=== PATIENT | female | born 1940 | race Caucasian/White ===

== ENCOUNTER 2024-01-02 15:52 | Outpatient (CLI) | payer MEDICARE, SELFPAY | END 2024-01-02 15:53 | disposition home or self-care (01) | PROVIDERS: PCP Family Medicine; Visit Provider Family Medicine | DX: Z00.00 Encounter for general adult medical examination without abnormal findings (principal); D64.9 Anemia, unspecified; E03.9 Hypothyroidism, unspecified; I10 Essential (primary) hypertension; E78.00 Pure hypercholesterolemia, unspecified; E11.9 Type 2 diabetes mellitus without complications | CPT/HCPCS: 80053; 80061; 82043; 82570; 82607; 82728; 83540; 83550; 84443 ==

== ENCOUNTER 2024-02-18 11:31 | Outpatient (CLI) | payer MEDICARE, SELFPAY ==
--- NOTE | 2024-02-18 12:53 | W.ANESCHARGE ---
Anesthesia Charges Start Date/Time Anesthesia Start Date: 02/18/24 Anesthesia Start Time: 12:32 Stop Date/Time Anesthesia Stop Date: 02/18/24 Anesthesia Stop Time: 13:07 Summary Extremes of Age - Over 70 or under 1: MDA
--- NOTE | 2024-02-18 13:08 | P.ANES_ITS ---
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
== END 2024-02-18 11:32 | disposition home or self-care (01) ==
LOC: OP CLINIC 11:32
PROVIDERS: PCP Family Medicine; Visit Provider Surgery
DX: D50.0 Iron deficiency anemia secondary to blood loss (chronic) (principal); K64.8 Other hemorrhoids; K57.30 Diverticulosis of large intestine without perforation or abscess without bleeding; I85.00 Esophageal varices without bleeding; K44.9 Diaphragmatic hernia without obstruction or gangrene; K31.89 Other diseases of stomach and duodenum; K92.2 Gastrointestinal hemorrhage, unspecified
CPT/HCPCS: 00813; 43239; 45378; 88305; 99100; J2704

== ENCOUNTER 2024-03-25 13:45 | Outpatient (CLI) | payer MEDICARE, SELFPAY ==
--- NOTE | 2024-03-25 14:00 | CRLHL7_ITS ---
For Patients: As a result of the Century Cures Act, medical imaging exams and procedure reports are released immediately into your electronic medical record. You may view this report before your referring provider. If you have questions, please contact your health care provider. BILATERAL SCREENING MAMMOGRAM WITH COMPUTER-AIDED DETECTION AND TOMOSYNTHESIS TECHNIQUE: CC and MLO views were obtained. These mammographic images have been obtained using full-field digital technique. These mammographic images were interpreted with the benefit of computer-aided detection. Breast Tomosynthesis was used in this interpretation. COMPARISON FILM: No comparison available. FINDINGS: The breasts are heterogeneously dense, which may obscure small masses. IMPRESSION: There is no radiographic evidence for malignancy. ASSESSMENT: BI-RADS Category 2: Benign RECOMMENDATION: Routine screening mammogram in 1 year. A lay language report of this examination will be provided to the patient. Steven Echevarria M.D. Diagnostic Radiologist [email or web address] SP/Dictated by: Steven Echevarria MD @ 04/08/2024 1:50:00 PM (Electronically Signed)
--- NOTE | 2024-03-25 14:30 | CRLHL7_ITS ---
For Patients: As a result of the Century Cures Act, medical imaging exams and procedure reports are released immediately into your electronic medical record. You may view this report before your referring provider. If you have questions, please contact your health care provider. DXA BONE MINERAL DENSITY STUDY Reason for exam: Screening. Essential (primary) hypertension. Current height (in): 61. Weight (lb): 135. Menopause age: 49. Ethnicity: White. 1. Have you had a previous hip or vertebral fracture? No. 2. Have you had any fractures during your adult life which did not result from significant trauma (e.g., auto accident)? No. 3. Did either of your parents have a hip fracture? No. 4. Do you smoke? No. 5. Have you ever taken Glucocorticoids? No. 6. Do you have rheumatoid arthritis? Yes. 7. Do you have secondary osteoporosis? No. 8. Do you drink 3 or more alcoholic drinks per day? No. 9. Are you being treated for osteoporosis? No. 10. Have you ever taken any of the following medications: Actonel, Evista, Fosamax, Miacalcin, Reclast, Boniva, Forteo, HRT (i.e. estrogen/hormone therapy), Protelos, Prolia, Vitamin D, Calcium, other ??? please specify. ANSWER: No. 11. Do you have any of the following medical conditions: Anorexia or bulimia, asthma or emphysema, end stage renal disease, hyperparathyroidism, any seizure disorders, cancer, inflammatory bowel diseases, hysterectomy, other ??? please specify. ANSWER: No. 12. What was your maximum height (inches)? 61. 13. Do you perform weight bearing exercise regularly? No. 14. Do you regularly consume dairy products? No. 15. Do you drink caffeinated beverages? Yes. 16. At what age did your period start? 12. 17. Are you premenopausal? No. 18. How many full term pregnancies have you had? 6. 19. Have you ever missed your period for more than 6 months in a row (not including or menopause)? No. TECHNIQUE: Bone mineral density study was performed using the [employer]. FINDINGS: The results of the study expressed as bone mineral density (BMD) are as follows: Lumbar spine L2 to L4: BMD: 0.850 g/cm2. T-score: -2.1. Z-score: 0.8. Neck Left: BMD: 0.551 g/cm2. T-score: -2.7. Z-score: -0.2. Right: BMD: 0.532 g/cm2. T-score: -2.9. Z-score: -0.4. Total Left: BMD: 0.656 g/cm2. T-score: -2.3. Z-score: -0.1. Right: BMD: 0.650 g/cm2. T-score: -2.4. Z-score: -0.1. IMPRESSION: Osteoporosis. *Comparison exams done prior to 03/2020 were performed on different unit, PAAY. Steven Echevarria M.D. Diagnostic Radiologist [email or web address] SP/Dictated by: Steven Echevarria MD @ 03/26/2024 10:51:00 AM (Electronically Signed)
== END 2024-03-25 13:46 | disposition home or self-care (01) ==
PROVIDERS: PCP Family Medicine; Visit Provider Family Medicine
DX: Z12.31 Encounter for screening mammogram for malignant neoplasm of breast (principal); R92.2 Inconclusive mammogram; Z13.820 Encounter for screening for osteoporosis; M81.0 Age-related osteoporosis without current pathological fracture; I10 Essential (primary) hypertension
CPT/HCPCS: 77063; 77067; 77080

== ENCOUNTER 2024-05-11 13:18 | Outpatient (CLI) | payer MEDICARE, SELFPAY | END 2024-05-11 13:19 | disposition home or self-care (01) | LOC: LKVREF 13:19 | PROVIDERS: PCP Family Medicine; Visit Provider Family Medicine | DX: D64.9 Anemia, unspecified (principal) | CPT/HCPCS: 82728 ==

== ENCOUNTER 2024-09-07 12:41 | Outpatient (CLI) | payer MEDICARE, SELFPAY | END 2024-09-07 12:42 | disposition home or self-care (01) | PROVIDERS: PCP Family Medicine; Visit Provider Family Medicine | DX: R79.89 Other specified abnormal findings of blood chemistry (principal); R53.83 Other fatigue; D64.9 Anemia, unspecified; E03.9 Hypothyroidism, unspecified; E11.9 Type 2 diabetes mellitus without complications; I10 Essential (primary) hypertension | CPT/HCPCS: 80076; 82728; 83540 ==

== ENCOUNTER 2024-10-02 10:26 | Outpatient (CLI) | payer MEDICARE, SELFPAY | END 2024-10-02 10:27 | disposition home or self-care (01) | PROVIDERS: PCP Family Medicine; Visit Provider Family Medicine | DX: D64.9 Anemia, unspecified (principal); M81.0 Age-related osteoporosis without current pathological fracture | CPT/HCPCS: 82728; 83540; 83735 ==

== ENCOUNTER 2024-10-30 09:57 | Outpatient (CLI) | payer MEDICARE, SELFPAY | END 2024-10-30 09:58 | disposition home or self-care (01) | PROVIDERS: PCP Family Medicine; Visit Provider Family Medicine | DX: D64.9 Anemia, unspecified (principal); E11.9 Type 2 diabetes mellitus without complications; E78.00 Pure hypercholesterolemia, unspecified; R79.0 Abnormal level of blood mineral | CPT/HCPCS: 80053; 83735 ==

== ENCOUNTER 2024-11-19 12:15 | Outpatient (CLI) | payer MEDICARE, SELFPAY | END 2024-11-19 12:16 | disposition home or self-care (01) | LOC: US 12:15 | PROVIDERS: PCP Family Medicine; Visit Provider Family Medicine | DX: R10.9 Unspecified abdominal pain (principal); K74.60 Unspecified cirrhosis of liver; K76.89 Other specified diseases of liver | CPT/HCPCS: 76705; 80061 ==

== ENCOUNTER 2024-12-24 13:56 | Outpatient (CLI) | payer MEDICARE, SELFPAY | END 2024-12-24 13:57 | disposition home or self-care (01) | PROVIDERS: PCP Family Medicine; Visit Provider Family Medicine | DX: I10 Essential (primary) hypertension (principal); D64.9 Anemia, unspecified; R79.0 Abnormal level of blood mineral; E03.9 Hypothyroidism, unspecified; E11.9 Type 2 diabetes mellitus without complications; K74.60 Unspecified cirrhosis of liver; R42 Dizziness and giddiness | CPT/HCPCS: 82607; 82728; 83540; 83550; 83735 ==

== ENCOUNTER 2025-02-11 08:39 | Outpatient (CLI) | payer MEDICARE, SELFPAY | END 2025-02-11 08:40 | disposition home or self-care (01) | LOC: NFLDREF 02-23 07:01 | PROVIDERS: PCP Family Medicine; Referring Provider Family Medicine; Visit Provider Clinical Nurse Specialist | DX: D64.9 Anemia, unspecified (principal) | CPT/HCPCS: 83540; 83550 ==

== ENCOUNTER 2025-03-09 10:24 | Outpatient (CLI) | payer MEDICARE, SELFPAY | END 2025-03-09 10:25 | disposition home or self-care (01) | LOC: NFLDREF 03-11 15:30 | PROVIDERS: PCP Family Medicine; Referring Provider Family Medicine; Visit Provider Family Medicine | DX: E03.9 Hypothyroidism, unspecified (principal) | CPT/HCPCS: 84443 ==

== ENCOUNTER 2025-04-08 10:43 | Outpatient (CLI) | payer MEDICARE, SELFPAY | END 2025-04-08 10:44 | disposition home or self-care (01) | LOC: LKVREF 10:45 | PROVIDERS: PCP Family Medicine; Visit Provider Family Medicine | DX: R79.89 Other specified abnormal findings of blood chemistry (principal); E03.9 Hypothyroidism, unspecified; E11.9 Type 2 diabetes mellitus without complications; D64.9 Anemia, unspecified; R79.0 Abnormal level of blood mineral | CPT/HCPCS: 82043; 82570; 83735 ==

== ENCOUNTER 2025-05-31 09:22 | Outpatient (CLI) | payer MEDICARE, SELFPAY | END 2025-05-31 09:23 | disposition home or self-care (01) | LOC: NFLDREF 06-02 13:35 | PROVIDERS: PCP Family Medicine; Referring Provider Family Medicine; Visit Provider Internal Medicine Hematology & Oncology | DX: K74.60 Unspecified cirrhosis of liver (principal); K21.9 Gastro-esophageal reflux disease without esophagitis; D64.9 Anemia, unspecified; Z79.899 Other long term (current) drug therapy | CPT/HCPCS: 80053; 82105; 82607; 82728; 82746; 83540; 83550 ==

== ENCOUNTER 2025-06-08 08:04 | Outpatient (CLI) | payer MEDICARE, SELFPAY ==
--- NOTE | 2025-06-08 08:15 | CRLHL7_ITS ---
For Patients: As a result of the Century Cures Act, medical imaging exams and procedure reports are released immediately into your electronic medical record. You may view this report before your referring provider. If you have questions, please contact your health care provider. CLINICAL HISTORY: Unspecified cirrhosis of liver COMPARISON: 11/19/2024 TECHNIQUE: Real time aviles scale imaging and color Doppler analysis was performed of the abdomen. FINDINGS: Liver echotexture is coarsened. Liver measures 16.5 cm. Cystic lesion within the liver is similar measuring 1.9 x 1.3 x 2.1 cm, previously measuring 2.1 cm. Stable benign cyst within the periphery of the left hepatic lobe measuring 1.5 x 1.2 x 1.3 cm, previously measuring 1.7 cm. The spleen is of normal size. The pancreas appears normal. The proximal abdominal aorta and IVC appear normal. There is no evidence of ascites. The gallbladder is of normal size and there is an echogenic stone measuring 8 millimeters within the gallbladder lumen, not significantly changed. The gallbladder wall measures 1.7 mm in thickness. The common bile duct measures 3.0 mm in size within the nitin hepatis. The kidneys appear symmetric. The right kidney measures 9.4 cm in length and the left kidney measures 9.4 cm. There is no evidence of a renal calculus or hydronephrosis. IMPRESSION: Stable benign cystic areas within the liver. Chronic coarsening of the hepatic parenchyma without suspicious intrahepatic mass. No ascites. Chronic cholelithiasis. Dictated by Steven Echevarria MD @ 06/08/2025 9:15:37 AM (Electronically Signed)
== END 2025-06-08 08:05 | disposition home or self-care (01) ==
LOC: US 08:06
PROVIDERS: PCP Family Medicine; Visit Provider Internal Medicine Hematology & Oncology
DX: K74.60 Unspecified cirrhosis of liver (principal); K76.89 Other specified diseases of liver; K80.20 Calculus of gallbladder without cholecystitis without obstruction; K21.9 Gastro-esophageal reflux disease without esophagitis; D64.9 Anemia, unspecified; I10 Essential (primary) hypertension; E11.9 Type 2 diabetes mellitus without complications; E78.5 Hyperlipidemia, unspecified
CPT/HCPCS: 76700

== ENCOUNTER 2025-06-08 09:00 | Outpatient (RCR) | payer MEDICARE, SELFPAY ==
[2025-06-09 10:26] LABS: Hematocrit* 42.5 % (33.0-51.0); Hemoglobin* 13.8 gm/dL (12.0-16.0); Immature Granulocytes Abs Auto 0.00 K/uL (0.00-0.30); Immature Granulocytes Pct Auto 0.0 %; Lymphocytes Absolute Auto 1.56 K/uL (0.90-2.90); Mean Corpuscular HGB Conc 33 gm/dL (32-36); Mean Corpuscular Hemoglobin 32 pg (26-34); Mean Corpuscular Volume 97 fL (80-100); RDW Coefficient of Variation % 13.0 % (11.5-15.5); Red Blood Count* 4.38 m/uL (4.00-5.20); White Blood Count* 5.73 K/uL (4.50-11.00)
[2025-06-09 10:29] LABS: Slide Review Reflex No
== END 2025-08-15 23:59 | disposition home or self-care (01) ==
LOC: CCIC 09:00
PROVIDERS: PCP Family Medicine; Visit Provider Internal Medicine Hematology & Oncology
DX: D64.9 Anemia, unspecified (principal); K74.60 Unspecified cirrhosis of liver; I85.11 Secondary esophageal varices with bleeding; K21.9 Gastro-esophageal reflux disease without esophagitis
CPT/HCPCS: 36415; 85025; 99202; 99204; 99213; G0463

== ENCOUNTER 2025-07-08 14:01 | Outpatient (CLI) | payer MEDICARE, SELFPAY | END 2025-07-08 14:02 | disposition home or self-care (01) | PROVIDERS: PCP Family Medicine; Visit Provider Family Medicine | DX: D64.9 Anemia, unspecified (principal); E11.9 Type 2 diabetes mellitus without complications; I10 Essential (primary) hypertension; R53.83 Other fatigue | CPT/HCPCS: 82728; 83540; 83550; 84443 ==